=== PATIENT | male | born 1975 | race Caucasian/White ===

== ENCOUNTER 2023-01-18 14:14 | Emergency (ER) | payer BC ==
[2023-01-18 14:34] VITALS: RESP 18
[2023-01-18 15:19] LABS: Basophils % (A) 0 %; Eosinophils # (A) 0.1 k/uL (0-0.7); Eosinophils % (A) 1 %; HCT 37.3 % (39.0-53.0); HGB 12.6 gm/dL (13.0-17.5); Lymphocytes % (A) 14 %; MCH 28.7 pg (25.0-35.0); MCHC 33.6 g/dL (31.0-37.0); MCV 85.2 fL (80.0-100.0); Mean Platelet Volume 8.3; Monocytes # (A) 0.5 k/uL (0-1.0); Monocytes % (A) 7 %; Neutrophils # (A) 5.5 k/uL (1.3-7.7); Neutrophils % (A) 77 %; Platelet Count 148 k/uL (150-450); RBC 4.38 m/uL (4.30-5.90); RDW 12.7 % (11.5-15.5); WBC 7.2 k/uL (3.8-10.6)
--- NOTE | 2023-01-18 15:25 | ED ---
Arrhythmia/Palpitations HPI - General Chief Complaint: Arrhythmia/Palpitations Stated Complaint: SVT Time Seen by Provider: 01/18/23 14:55 Source: patient, EMS, RN notes reviewed Mode of arrival: EMS Limitations: no limitations - History of Present Illness Initial Comments: 47-year-old male presents emergency Department with chief complaint of chest discomfort, palpitations. Patient states he was not feeling well at work she states she became very sweaty states his heart was racing. Patient states he left work go home states he called EMS he states he started feeling slightly better at the time but was found to be in SVT he had a heart rate in the 220s believes it was higher than that. Patient states he has no current symptoms he did take aspirin, 3 nitro prior EMS arrival. He states he had nitro from the event that he had an thousand 18 for similar to this but states he does not believe he was called SVT. Patient had a heart cath 2018 thatFindings dizzy of history of diabetes and hyperlipidemia. Patient does not currently sees cardio logy he states he had this procedure performed at [facility] in [facility] - Related Data Home Medications Medication Instructions Recorded Confirmed Atorvastatin [Lipitor] 10 mg PO HS 08/05/19 08/05/19 Empagliflozin/Metformin HCl 1 each PO DAILY 08/05/19 08/05/19 [Synjardy 12.5-1,000 mg Tablet] Allergies Allergy/AdvReac Type Severity Reaction Status Date / Time No Known Allergies Allergy Verified 01/18/23 14:34 Review of Systems ROS Statement: Those systems with pertinent positive or pertinent negative responses have been documented in the HPI. ROS Other: All systems not noted in ROS Statement are negative. Past Medical History Past Medical History: Chest Pain / Angina, Diabetes Mellitus, Hyperlipidemia, Supraventricular Tachycardia (SVT) History of Any Multi-Drug Resistant Organisms: None Reported Additional Past Surgical History / Comment(s): carpal tunnel Left, vasectomy Past Anesthesia/Blood Transfusion Reactions: No Reported Reaction Past Psychological History: No Psychological Hx Reported Smoking Status: Never smoker Past Alcohol Use History: Rare Past Drug Use History: None Reported General Exam Limitations: no limitations General appearance: alert, in no apparent distress Head exam: Present: atraumatic, normocephalic, normal inspection Eye exam: Present: normal appearance, PERRL, EOMI. Absent: scleral icterus, conjunctival injection, periorbital swelling ENT exam: Present: normal exam, mucous membranes moist Neck exam: Present: normal inspection, full ROM. Absent: tenderness, meningismus, lymphadenopathy Respiratory exam: Present: normal lung sounds bilaterally. Absent: respiratory distress, wheezes, rales, rhonchi, stridor Cardiovascular Exam: Present: regular rate, normal rhythm, normal heart sounds. Absent: systolic murmur, diastolic murmur, rubs, gallop, clicks GI/Abdominal exam: Present: soft, normal bowel sounds. Absent: distended, tenderness, guarding, rebound, rigid Course Vital Signs 01/18/23 14:18 Pulse Rate 94 Respiratory 18 Rate Blood Pressure 91/45 O2 Sat by Pulse 98 Oximetry EKG Findings - EKG Comments: EKG Findings:: EKG performed at 14:25 sinus rhythm with rate 91. pr 138 QRS 94 QT/QTC 340/389 - EKG Results: EKG: interpreted by GEORGE Medical Decision Making - Medical Decision Making Was pt. sent in by a medical professional or institution (, PA, [employer], urgent care, hospital, or penitentiary...) When possible be specific @ -No Did you speak to anyone other than the patient for history (EMS, parent, family, police, friend...)? What history was obtained from this source @ -EMS) prehospital vitals, care and medications given Did you review nursing and triage notes (agree or disagree)? Why? @ -I reviewed and agree with nursing and triage notes Were old charts reviewed (outside hosp., previous admission, EMS record, old EKG, old radiological studies, urgent care reports/EKG's, penitentiary records)? Report findings @ -No old charts were reviewed Differential Diagnosis (chest pain, altered mental status, abdominal pain women, abdominal pain men, vaginal bleeding, weakness, fever, dyspnea, syncope, headache, dizziness, GI bleed, back pain, seizure, CVA, palpatations, mental health, musculoskeletal)? @ -nDifferential Palpitations Ventricular arrhythmias, atrial arrhythmias, myocardial infarction, anemia, thyrotoxicosis, electrolyte imbalance, hypokalemia, pulmonary embolism, pulmonary disease, drugs, alcohol, anxiety, stress.... This is not meant to be an all-inclusive list.le EKG interpreted by me (3pts min.). @ -As above X-rays interpreted by me (1pt min.). @ -Chest x-ray shows no acute process done CT interpreted by me (1pt min.). @ -None done U/S interpreted by me (1pt. min.). @ -None done What testing was considered but not performed or refused? (CT, X-rays, U/S, labs)? Why? @ -None What meds were considered but not given or refused? Why? @ -None Did you discuss the management of the patient with other professionals (professionals i.e. , PA, [employer], lab, RT, psych nurse, oncology social worker, health insurance agent, teacher, light armored reconnaissance officer, rifle case repairer)? Give summary @ -No Was smoking cessation discussed for >3mins.? @ -No Was critical care preformed (if so, how long)? @ -No Were there social determinants of health that impacted care today? How? (Homelessness, low income, unemployed, alcoholism, drug addiction, transportation, low edu. Level, literacy, decrease access to med. care, mcc, rehab)? @ -No Was there de-escalation of care discussed even if they declined (Discuss DNR or withdrawal of care, Hospice)? DNR status @ -No What co-morbidities impacted this encounter? (DM, HTN, Smoking, COPD, CAD, Cancer, CVA, ARF, Chemo, Hep., AIDS, mental health diagnosis, sleep apnea, morbid obesity)? @ -Diabetes, hyperlipidemia Was patient admitted / discharged? Hospital course, mention meds given and route, prescriptions, significant lab abnormalities, going to OR and other pertinent info. @ -Discharged patient's was found be in SVT by EMS patient was given adenosine prior arrival. Patient remains asymptomatic with no current chest pain or shortness breath. Patient has an history of an arrhythmia in the past and has seen cardiology he will follow-up with cardiology discuss immediate return for any worsening change in symptoms Undiagnosed new problem with uncertain prognosis? @ -No Drug Therapy requiring intensive monitoring for toxicity (Heparin, Nitro, Insulin, Cardizem)? @ -No Were any procedures done? @ -No Diagnosis/symptom? @ -SVT Acute, or Chronic, or Acute on Chronic? @ -Acute Uncomplicated (without systemic symptoms) or Complicated (systemic symptoms)? @ -, Complicated Side effects of treatment? @ -No Exacerbation, Progression, or Severe Exacerbation? @ -No Poses a threat to life or bodily function? How? (Chest pain, USA, DC, pneumonia, PE, COPD, DKA, ARF, appy, cholecystitis, CVA, Diverticulitis, Homicidal, Suicidal, threat to staff... and all critical care pts) @ -Yes poses a threat to cardiac arrest - Lab Data Result diagrams: 01/18/23 15:12 01/18/23 15:12 Lab Results 01/18/23 01/18/23 01/18/23 Range/Units 15:12 15:12 15:12 WBC 7.2 (3.8-10.6) k/uL RBC 4.38 (4.30-5.90) m/uL Hgb 12.6 L (13.0-17.5) gm/dL Hct 37.3 L (39.0-53.0) % MCV 85.2 (80.0-100.0) fL MCH 28.7 (25.0-35.0) pg MCHC 33.6 (31.0-37.0) g/dL RDW 12.7 (11.5-15.5) % Plt Count 148 L (150-450) k/uL MPV 8.3 Neutrophils % 77 % Lymphocytes % 14 % Monocytes % 7 % Eosinophils % 1 % Basophils % 0 % Neutrophils # 5.5 (1.3-7.7) k/uL Lymphocytes # 1.0 (1.0-4.8) k/uL Monocytes # 0.5 (0-1.0) k/uL Eosinophils # 0.1 (0-0.7) k/uL Basophils # 0.0 (0-0.2) k/uL PT 10.5 (9.0-12.0) sec INR 1.0 (<1.2) APTT 22.3 (22.0-30.0) sec Sodium 137 (137-145) mmol/L Potassium 4.6 (3.5-5.1) mmol/L Chloride 102 (98-107) mmol/L Carbon Dioxide 24 (22-30) mmol/L Anion Gap 11 mmol/L BUN 14 (9-20) mg/dL Creatinine 0.85 (0.66-1.25) mg/dL Est GFR (CKD-EPI)AfAm >90 (>60 ml/min/1.73 sqM) Est GFR (CKD-EPI)NonAf >90 (>60 ml/min/1.73 sqM) Glucose 175 H (74-99) mg/dL Calcium 8.9 (8.4-10.2) mg/dL Magnesium 1.6 (1.6-2.3) mg/dL Total Bilirubin 0.6 (0.2-1.3) mg/dL AST 26 (17-59) U/L ALT 27 (4-49) U/L Alkaline Phosphatase 71 (38-126) U/L Troponin I (0.000-0.034) ng/mL Total Protein 6.3 (6.3-8.2) g/dL Albumin 3.8 (3.5-5.0) g/dL TSH 1.280 (0.465-4.680) mIU/L 01/18/23 Range/Units 15:16 WBC (3.8-10.6) k/uL RBC (4.30-5.90) m/uL Hgb (13.0-17.5) gm/dL Hct (39.0-53.0) % MCV (80.0-100.0) fL MCH (25.0-35.0) pg MCHC (31.0-37.0) g/dL RDW (11.5-15.5) % Plt Count (150-450) k/uL MPV Neutrophils % % Lymphocytes % % Monocytes % % Eosinophils % % Basophils % % Neutrophils # (1.3-7.7) k/uL Lymphocytes # (1.0-4.8) k/uL Monocytes # (0-1.0) k/uL Eosinophils # (0-0.7) k/uL Basophils # (0-0.2) k/uL PT (9.0-12.0) sec INR (<1.2) APTT (22.0-30.0) sec Sodium (137-145) mmol/L Potassium (3.5-5.1) mmol/L Chloride (98-107) mmol/L Carbon Dioxide (22-30) mmol/L Anion Gap mmol/L BUN (9-20) mg/dL Creatinine (0.66-1.25) mg/dL Est GFR (CKD-EPI)AfAm (>60 ml/min/1.73 sqM) Est GFR (CKD-EPI)NonAf (>60 ml/min/1.73 sqM) Glucose (74-99) mg/dL Calcium (8.4-10.2) mg/dL Magnesium (1.6-2.3) mg/dL Total Bilirubin (0.2-1.3) mg/dL AST (17-59) U/L ALT (4-49) U/L Alkaline Phosphatase (38-126) U/L Troponin I 0.017 (0.000-0.034) ng/mL Total Protein (6.3-8.2) g/dL Albumin (3.5-5.0) g/dL TSH (0.465-4.680) mIU/L Disposition Clinical Impression: Supraventricular tachycardia Disposition: HOME SELF-CARE Condition: Stable Instructions (If sedation given, give patient instructions): Supraventricular Tachycardia (ED) Additional Instructions: Please return to the Emergency Department if symptoms worsen or any other concerns. Is patient prescribed a controlled substance at d/c from ED?: No Referrals: Marilou Hill PAC [Primary Care Provider] - 1-2 days Soren Crocker MD [STAFF PHYSICIAN] - 1-2 days Time of Disposition: 16:18
--- NOTE | 2023-01-18 15:33 | XR ---
EXAMINATION TYPE: XR chest 2V DATE OF EXAM: 01/18/2023 COMPARISON: NONE HISTORY: Chest pain TECHNIQUE: Frontal and lateral views of the chest are obtained. FINDINGS: There is no focal air space opacity. No evidence for pneumothorax. No pleural effusion. The cardiac silhouette size is within normal limits. The osseous structures are grossly intact. IMPRESSION: 1. No acute cardiopulmonary process.
[2023-01-18 15:42] LABS: ALT 27 U/L (4-49); AST 26 U/L (17-59); African American GFR (CKD) >90 (>60 ml/min/1.73 sqM); Albumin 3.8 g/dL (3.5-5.0); Alkaline Phosphatase 71 U/L (38-126); Anion Gap 11 mmol/L; Blood Urea Nitrogen 14 mg/dL (9-20); Calcium 8.9 mg/dL (8.4-10.2); Carbon Dioxide 24 mmol/L (22-30); Chloride 102 mmol/L (98-107); Glucose 175 mg/dL (74-99); Magnesium 1.6 mg/dL (1.6-2.3); Non-African American GFR(CKD) >90 (>60 ml/min/1.73 sqM); Partial Thromboplastin Time 22.3 sec (22.0-30.0); Prothrombin Time 10.5 sec (9.0-12.0); Sodium 137 mmol/L (137-145); Total Bilirubin 0.6 mg/dL (0.2-1.3); Total Protein 6.3 g/dL (6.3-8.2)
[2023-01-18 15:44] LABS: Potassium 4.6 mmol/L (3.5-5.1)
[2023-01-18 16:35] VITALS: BP 121/72; PULSE 88
== END 2023-01-18 16:35 | disposition home or self-care (01) ==
LOC: EC 14:14
DX: I47.1 Supraventricular tachycardia (principal); E11.9 Type 2 diabetes mellitus without complications; E78.5 Hyperlipidemia, unspecified; Z79.899 Other long term (current) drug therapy
CPT/HCPCS: 36415; 71046; 80053; 83735; 84443; 84484; 85025; 85610; 85730; 93005; 99285

== ENCOUNTER → 2023-07-07 | Outpatient (CLI) | payer BC ==
[2023-07-07 22:48] LABS: HCT 43.9 % (39.6-50.0); HGB 13.8 g/dL (13.0-17.0); MCH 28.8 pg (27.0-32.0); MCHC 31.4 g/dL (32.0-37.0); MCV 91.6 FL (80.0-97.0); Mean Platelet Volume 11.5 FL (9.5-12.2); NRBC Per 100 WBC 0 X 10*3/uL (0.00-0.01); Platelet Count 208 X 10*3/uL (140-440); RBC 4.79 X 10*6/uL (4.40-5.60); RDW 12.3 % (11.5-14.5); WBC 7.09 X 10*3/uL (4.50-10.00)
[2023-07-07 22:52] LABS: Carbon Dioxide 26.6 mmol/L (21.6-31.8); Chloride 103 mmol/L (96-109); Potassium 5.1 mmol/L (3.5-5.5); Sodium 140 mmol/L (135-145)
== END | disposition home or self-care (01) ==
LOC: LABPAT 09:31
PROVIDERS: ATTEND Internal Medicine Clinical Cardiac Electrophysiology
DX: Z01.812 Encounter for preprocedural laboratory examination (principal); I47.10 Supraventricular tachycardia, unspecified
CPT/HCPCS: 80051; 82565; 85027

== ENCOUNTER 2023-07-16 08:36 | Day surgery (SDC) | payer BC ==
[2023-07-12 13:01] VITALS: BMI 34.0
[2023-07-16] MEDS: SODIUM CHLORIDE 0.9% 1,000 ML IV SCH (09:03)
[2023-07-16 09:08] LABS: Glucose,Whole Blood 165 mg/dL (70-110)
[2023-07-16] MEDS ORDERED: fentaNYL (PF) 50 MCG/ML 2 ML AMP ONE (11:54)
[2023-07-16] MEDS ORDERED: MIDAZOLAM 2 MG/2 ML VIAL ONE (11:54)
[2023-07-16] MEDS ORDERED: ISOPROTERENOL 250 MCG/1.25 ML SYR IV ONE (11:54)
[2023-07-16] MEDS ORDERED: LIDOCAINE 1% INJ 10MG/ML (20 ML MDV) ONE ×2 (12:13→13:22)
[2023-07-16] MEDS ORDERED: LIDOCAINE 1% INJ 10MG/ML (20 ML MDV) SQ ONE (12:17)
--- NOTE | 2023-07-16 12:48 | P.HPCAR ---
History of Present Illness This is Dr. Pickering dictating an H/P on this patient The patient was interviewed and examined IMPRESSION / ASSESSMENT: Recurrent palpitations, at least 3 episodes associated with nausea up of back pain spreading Unresponsive to Valsalva maneuver. An IV medication terminated abruptly Type 2 diabetes Normal LV size and function Normal TSH PLAN: Diagnostic EP study possibly frequency ablation depending upon the results of EP study HPI Patient has had at least 3 episodes of rapid heartbeat. He feels nauseous 20 with upper back discomfort Type 2 diabetes He denies any recent chest discomfort shortness of breath orthopnea PND No fever chills or rigors cough expectoration ROS: No fever chills or rigors, no cough, phlegm or expectoration, no nausea, vomiting or diarrhea, no hematuria, dysuria, no musculoskeletal complaints, no strokes or seizures, no skin lesions. EXAMINATION: Afebrile, blood pressure 122/76. His mercury pulse rate in the 90s Heart sounds S1 and S2 normal Breath sounds are clear No rhonchi no crackles REVIEW OF LABS, ECG & MEDICAL DATA normal TSH Normal hemoglobin of 13.8 Sodium 140 potassium 5.1, BUN 14 creatinine 0.8 AST 26 ALT 27 LDL 60 HDL 37, triglycerides 197 Physical Exam Vitals: Vital Signs Temp Pulse Resp BP BP Pulse Ox 07/16/23 08:56 98 F 96 18 122/76 126/81 97 Intake and Output 07/15/23 07/16/23 07/16/23 22:59 06:59 14:59 Intake Total 100 Balance 100 Intake: IV 100 Other: Weight 96.1 kg Past Medical History Past Medical History: Chest Pain / Angina, Diabetes Mellitus, Hyperlipidemia, Supraventricular Tachycardia (SVT) History of Any Multi-Drug Resistant Organisms: None Reported Additional Past Surgical History / Comment(s): carpal tunnel Left, vasectomy, Past Anesthesia/Blood Transfusion Reactions: No Reported Reaction Smoking Status: Never smoker - Past Family History Mother Family Medical History: Cancer Physical Examination Vital Signs Temp Pulse Resp BP BP Pulse Ox 07/16/23 08:56 98 F 96 18 122/76 126/81 97 Intake and Output 07/15/23 07/16/23 07/16/23 22:59 06:59 14:59 Intake Total 100 Balance 100 Intake: IV 100 Other: Weight 96.1 kg Results Current Medications Generic Name Dose Route Start Last Admin Trade Name Freq PRN Reason Stop Dose Admin Sodium Chloride 1,000 mls @ 50 mls/hr 07/16/23 05:51 07/16/23 09:03 Saline 0.9% IV 08/15/23 05:52 100 mls .Q20H CARMEL Administration Intake and Output 07/15/23 07/16/23 07/16/23 22:59 06:59 14:59 Intake Total 100 Balance 100 Intake: IV 100 Other: Weight 96.1 kg Patient Weight 07/17/23 06:59 Weight 96.1 kg
[2023-07-16] MEDS ORDERED: ACETAMINOPHEN IV (For NPO) 1,000 MG in EMPTY BAG 1 BAG IVPB ONE (14:35)
[2023-07-16] MEDS ORDERED: HEPARIN SODIUM (1,000 UNIT/ML) 1,000 UNIT in SODIUM CHLORIDE 0.9% 1,000 ML IRRIGATION ONE (14:36)
--- NOTE | 2023-07-16 15:09 | P.PRLE ---
RE: Barrington Jacques Dear [ ],Dear Dr. Darren Rojas underwent a diagnostic EP study which revealed typical AV node reentrant tachycardia He underwent successful mapping and ablation of the slow pathway and the tachycardia was rendered noninducible Thank you for entrusting me with the care of the patient Warm regards Sincerely Neel Pickering
--- NOTE | 2023-07-16 15:15 | P.EPPROC ---
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 Written informed consent was obtained prior to the procedure. The right and left groins were prepped and draped as a protocol and diagnostic catheters were placed in the high right atrium, right ventricle, coronary sinus and His bundle area via right and left femoral sheaths Baseline measurements were as follows and abnormal Sinus cycle length 990 ms, MT interval 129 ms, QRS 103 ms and QT 414 ms AH 58 and HV interval 41 ms Straight pacing revealed absence of delta waves and there was no clear-cut evidence for slow pathway conduction with straight pacing Sinus node recovery times at 600, 500 and, 400 ms were 1334, 1235 and 1359 ms Current medicines recovery times abnormal AV node Wenckebach block 310 ms VA Wenckebach block 340 ms atrial ERP 600/280 Ventricular ERP 600\240 Parahisian pacing revealed a whitney response Ur stimulation at 330 ms induced SVT with left bundle branch block aberrancy Tachycardia cycle length 348 ms Post pace interval was long Post-pacing interval minus tachycardia cycle length 149 ms Septal times a short A long sheath was placed along with an irrigated tip ablation catheter Slow pathway was mapped RF ablation was applied anterior to and just outside the Aquiles sinus + This line was continued up to the coronary sinus os for completion of ablation Junctional rhythm was obtained Following that the tachycardia was rendered noninducible EP testing was performed on and off high dose Isuprel Very occasional single echo beats were noted Straight pacing burst stimulation and atrial extra stimulation appropriate double extrastimuli was performed from the high right atrium from the coronary sinus No further SVT was induced both on and off Isuprel All catheters removed Hemostasis was assured with Vascade closure device Patient tolerated the procedure well without any acute complications
[2023-07-16] MEDS: metFORMIN 850 MG TAB PO SCH (20:38)
[2023-07-16 20:49] LABS: Glucose,Whole Blood 161 mg/dL (70-110)
[2023-07-16] MEDS ORDERED: ATORVASTATIN 40 MG TAB PO SCH (21:00)
[2023-07-16] MEDS: ACETAMINOPHEN TAB 325 MG TAB PO PRN (23:47)
[2023-07-17] MEDS: SODIUM CHLORIDE 0.9% 1,000 ML IV SCH (01:23)
[2023-07-17 02:10] VITALS: TEMP 97.9
[2023-07-17 06:33] LABS: Glucose,Whole Blood 159 mg/dL (70-110)
[2023-07-17] MEDS: metFORMIN 850 MG TAB PO SCH (08:15)
[2023-07-17 08:19] VITALS: BP 124/74; PULSE 60; RESP 16
[2023-07-17] MEDS ORDERED: PIOGLITAZONE 30 MG TAB PO SCH (09:00)
[2023-07-17] MEDS: ACETAMINOPHEN TAB 325 MG TAB PO PRN (09:25)
--- NOTE | 2023-07-17 14:48 | P.DS ---
Providers Attending physician: Neel Pickering Primary care physician: [facility] Course: Patient is doing well. Walking around the room Groins of healed well No hematoma no swelling No chest discomfort dizziness or lightheadedness Afebrile 97.98 Fahrenheit, pulse rate in the 60s Blood pressure 124/74 mmHg Normal heart sounds no murmurs or gallops or rub Impression Recurrent palpitations Diagnostic EP study revealed typical AV node reentry Status post successful ablation in the tachycardia was rendered noninducible Plan Continue current medications Discharge home today Follow-up with Dr. Her within one week Plan - Discharge Summary Discharge Rx Participant: No New Discharge Prescriptions: No Action metFORMIN HCL [Glucophage] 850 mg PO BID Pioglitazone [Actos] 30 mg PO DAILY Atorvastatin [Lipitor] 40 mg PO HS RX: Loratadine 10 mg PO HS Discharge Medication List Atorvastatin [Lipitor] 40 mg PO HS 07/12/23 [History] Pioglitazone [Actos] 30 mg PO DAILY 07/12/23 [History] RX: Loratadine 10 mg PO HS 07/12/23 [History] metFORMIN HCL [Glucophage] 850 mg PO BID 07/12/23 [History] Follow up Appointment(s)/Referral(s): Tha Her DO [STAFF PHYSICIAN] - 07/24/23 9:30 am Patient Instructions/Handouts: Cardiac Ablation (DC) Discharge Disposition: HOME SELF-CARE
== END 2023-07-17 12:15 | disposition home or self-care (01) ==
LOC: CATHEP 08:36 → 6NMEDSUR 16:16 → CATHEP 07-17 12:15
PROVIDERS: ATTEND Internal Medicine Clinical Cardiac Electrophysiology
DX: I47.19 Other supraventricular tachycardia (principal); E11.9 Type 2 diabetes mellitus without complications; E78.5 Hyperlipidemia, unspecified; Z79.82 Long term (current) use of aspirin; Z98.890 Other specified postprocedural states; Z79.899 Other long term (current) drug therapy
CPT/HCPCS: 93623; 93653; 86900; 86901; 84443; 86850; C1894; C1769; C1760; C1730 ×2; C1893; C1732; J2001; J1644

== ENCOUNTER → 2024-04-14 | Outpatient (CLI) | payer OTHER ==
--- NOTE | 2024-04-14 17:43 | XR ---
EXAMINATION TYPE: XR hand complete LT DATE OF EXAM: 04/14/2024 COMPARISON: None HISTORY: Contusion left hand pain second digit for 3 weeks TECHNIQUE: 3 view left hand FINDINGS: There appears to be a fracture through the metaphysis of the proximal phalanx left thumb. T his has intra-articular extension. No additional fractures are evident. Joint spaces are preserved. Soft tissues appear normal. IMPRESSION: 1. Fracture of the base of the proximal phalanx left thumb [facility], , 04/14/2024 5:41 PM
== END | disposition home or self-care (01) ==
LOC: RADXRMAIN 16:57
PROVIDERS: ATTEND Emergency Medicine
DX: S60.222A Contusion of left hand, initial encounter